=== PATIENT | male | born 1945 | race African-American/Black ===

== ENCOUNTER 2017-03-17 08:00 | Inpatient (IN) | payer MEDICARE, OTHER ==
[~2017-03-17] VITALS: Ht 185.4 cm; Wt 116.1 kg
[2017-03-17] VITALS (12 sets, daily range): BP systolic 124–192; BP diastolic 75–101
[2017-03-17 08:23] LABS: HEMATOCRIT 41.8 % (39.0-53.0); HEMOGLOBIN 14.1 g/dL (13.0-17.5); RED BLOOD COUNT 4.69 x10^6/uL (4.30-5.70); RED CELL DISTRIBUTION WIDTH 14.5 % (11.5-14.5); WHITE BLOOD COUNT 4.3 x10^3/uL (4.0-11.0)
[2017-03-17 08:33] LABS: PROTHROMBIN TIME PATIENT 12.4 SEC (11.7-14.0)
[2017-03-17 08:36] LABS: CALCIUM 9.1 mg/dL (8.5-10.1); CREATININE 1.2 mg/dL (0.7-1.3); POTASSIUM 4.1 mmol/L (3.5-5.1)
[2017-03-17] MEDS ORDERED: CALC1TAB PO (08:40)
[2017-03-17] MEDS ORDERED: TAMS0.4C97 PO (08:47)
[2017-03-17] MEDS ORDERED: METF500T4 PO (08:47)
[2017-03-17] MEDS ORDERED: LISI-334 PO (08:47)
[2017-03-17] MEDS ORDERED: METO25TA4 PO (08:47)
[2017-03-17] MEDS ORDERED: SIMV40TA3 PO (08:47)
[2017-03-17] MEDS ORDERED: ALLO300T PO (08:47)
[2017-03-17] MEDS ORDERED: ASPI81TA44 PO (08:47)
[2017-03-17] MEDS ORDERED: IBUP200T43 PO (08:47)
[2017-03-17] MEDS ORDERED: IOHEXOL 300 MG/ML 100ML VIAL. ONE ×2 (09:48→10:50)
[2017-03-17] MEDS ORDERED: LIDOCAINE 2% 20 ML VIAL. ONE (09:48)
[2017-03-17] MEDS ORDERED: MIDAZOLAM HCL/PF 2 MG/2 ML VIAL. ONE (10:05)
[2017-03-17] MEDS ORDERED: fentaNYL PF VIAL 100 MCG/2 ML VIAL ONE (10:05)
[2017-03-17] MEDS ORDERED: NITROGLYCERIN 200 MCG/2 ML SYRINGE FOR CATH/VASC LAB. ONE ×2 (10:05→13:51)
[2017-03-17] MEDS ORDERED: HEPARIN for IV BOLUS 10,000 UNIT/10 ML VIAL. ONE (10:05)
[2017-03-17] MEDS ORDERED: VERAPAMIL 5 MG/2 ML VIAL. ONE (10:05)
[2017-03-17] MEDS ORDERED: BIVALIRUDIN 250 MG VIAL. IV ONE ×2 (10:22→11:00)
[2017-03-17] MEDS: IV 1/2 NORMAL SALINE 1,000 ML IV SCH ×2 (10:27→20:31)
[2017-03-17] MEDS ORDERED: ASPIRIN 325 MG TABLET ONE (10:48)
[2017-03-17] MEDS ORDERED: CLOPIDOGREL BISULFATE 75 MG TABLET ONE (10:48)
[2017-03-17] MEDS ORDERED: MIDAZOLAM HCL/PF 2 MG/2 ML VIAL. IV ONE (11:00)
[2017-03-17] MEDS ORDERED: LIDOCAINE 2% 20 ML VIAL. IJ ONE (11:00)
[2017-03-17] MEDS ORDERED: NITROGLYCERIN 200 MCG/2 ML SYRINGE FOR CATH/VASC LAB. IART ONE (11:00)
[2017-03-17] MEDS ORDERED: CLOPIDOGREL BISULFATE 75 MG TABLET PO ONE (11:00)
[2017-03-17] MEDS ORDERED: fentaNYL PF VIAL 100 MCG/2 ML VIAL IV ONE (11:00)
[2017-03-17] MEDS ORDERED: IOHEXOL 300 MG/ML 100ML VIAL. IART ONE (11:00)
[2017-03-17] MEDS ORDERED: HEPARIN for IV BOLUS 10,000 UNIT/10 ML VIAL. IART ONE (11:00)
[2017-03-17] MEDS ORDERED: VERAPAMIL 5 MG/2 ML VIAL. IART ONE (11:00)
[2017-03-17] MEDS ORDERED: ASPIRIN 325 MG TABLET PO ONE (11:00)
--- NOTE | 2017-03-17 11:01 | PDOC ---
MODERATE SEDATION ASSESSMENT RISKS/ALTERNATIVES Risks/Alternatives Risks and alternatives of this type of sedation and procedure discussed with: RISK/ALTERNATIVES: Patient H & P ON CHART H & P H & P on chart and reviewed for co-morbid conditions and appropriate labs. H&P ON CHART: Yes STATUS PREG STATUS ASSESSED: N/A MEDS/ALLERGIES REVIEWED Meds/Allergies Reviewed Medications and Allergies including time and route of recently administered narcotics and sedatives. MEDS/ALLERGIES REVIEWED: Yes ASA RATING ASA RATING: II AIRWAY ASSESSMENT Airway Assessment Airway patency, oral function limitations, presence of caps, crowns, dentures, partials, and ability to extend neck assessed. AIRWAY ASSESSMENT: Yes MALLAMPATI SCORE MALLAMPATI SCORE: II PRE-SEDATION ASSESSMENT PRE-SEDATION ASSESSMENT: Yes JASON MEJIA MD Mar 17, 2017 11:01
[2017-03-17] MEDS ORDERED: NITROGLYCERIN SUBLINGUAL 0.4 MG BOTTLE OF 25. SL PRN (11:15)
--- NOTE | 2017-03-17 11:37 | EKG ---
[facility] [address] [place] [address] Test Date: 2017-03-17 Test Time: 11:26:26 Pat Name: YARA JON Department: Room: Gender: M Warp Tension Tester: ARMANI : 1945 Requested By: JASON MEJIA Order Number: [id number] Reading MD: Measurements Intervals [place] Rate: 55 P: 44 [place]: 196 QRS: -32 QRSD: 88 T: 22 QT: 408 QTc: 392 Interpretive Statements SINUS RHYTHM ABNORMAL LEFT AXIS DEVIATION R-S TRANSITION ZONE IN V LEADS DISPLACED TO THE LEFT LOW LIMB LEAD VOLTAGE LEFT ANTERIOR FASCICULAR BLOCK QRS(T) CONTOUR ABNORMALITY CONSIDER ANTEROSEPTAL MYOCARDIAL DAMAGE ABNORMAL ECG RI6.01 No previous ECG available for comparison
--- NOTE | 2017-03-17 11:58 | CARD ---
APPROVED REPORT Procedure(s) performed: 1. Left heart catheterization, selective coronary angiography and left ventr iculography via right transradial approach 2. Successful PCI/drug eluting stent placement to the left anterior descending artery Moderate Sedation: 61 min INDICATION The indication(s) include : unstable angina . PROCEDURE NARRATIVE After explaining the risks, benefits and alternative options, informed consent was obtained from irma ent. She was brought to the cardiac Environmental Safety Specialist and his right wrist was prepped and draped in the usual fashion after confirming a positive modified Elie's test. Arterial access was obtained in the right radial artery and 6 Norwegian sheath was inserted. 6 Norwegian Ezequiel and 6 Norwegian JL 3.5 catheters were us ed to perform selective angiography of the right and left coronary arteries. 6 Norwegian pigtail cathete r was used to perform left ventriculography. The following findings were noted. FINDINGS 1. Hemodynamics: Left ventricular end-diastolic pressure 17 mmHg. No pullback gradient across the a ortic valve. 2. Left ventriculography: Normal left ventricular systolic function with ejection fraction estimate d at 50-55%. No significant mitral regurgitation seen. 3. Coronary angiography: a. The left main coronary artery arose from the left sinus of Valsalva, gave rise to the left anteri or descending and left circumflex arteries and did not show any significant stenosis. b. The left anterior descending artery showed tandem 90% and 60% stenoses involving the midsegment. c. The left circumflex artery did not show any significant stenosis. d. The right coronary artery was a large and dominant vessel arising from the right sinus of Valsalv a that showed 30% mid segment stenosis. INTERVENTION The left main coronary artery was engaged with a 6 Norwegian JL 3.5 guide catheter after initial attempt s to engage this using 6 Norwegian XB 3.5 guide catheter were unsuccessful. The stenoses in the midsegme nt recrossed with a 0.014 inch Swift Shift guidewire, predilated with a 3.0 x 15 mm trek balloon f ollowing which this was successfully treated with a 3.5 x 28 mm Xience Alpine drug-eluting stent. Fol low-up angiography showed resolution of the stenosis with good distal flow. Patient tolerated the pro cedure well. Hemostasis was achieved using TR band. There were no immediate complications. Conclusion 1. Severe single-vessel coronary artery disease 2. Successful PCI/drug eluting stent placement to the left anterior descending artery 3. Normal left ventricle systolic function with ejection fraction estimated at 50-55%. Recommendations 1. Aspirin 325 mg daily 2. Plavix 75 mg daily for preferably one year 3. Cardiovascular risk factor modification
[2017-03-17] MEDS ORDERED: TRAZ50TA15 PO (13:05)
[2017-03-17] MEDS ORDERED: IBUPROFEN 200 MG TABLET. PO PRN (14:45)
[2017-03-17] MEDS: METOPROLOL TART IMMED RELEASE 25 MG TABLET. PO SCH ×2 (15:00→20:24)
[2017-03-17] MEDS ORDERED: ASPIRIN CHEWABLE 81 MG TABLET. PO SCH (15:00)
[2017-03-17] MEDS: ALLOPURINOL 300 MG TABLET. PO SCH (15:00)
[2017-03-17] MEDS: TAMSULOSIN 0.4 MG CAP.ER.24H. PO SCH (15:00)
[2017-03-17] MEDS: LISINOPRIL 20 MG TABLET PO SCH (15:00)
[2017-03-17] MEDS: hydrALAZINE 20 MG/ML VIAL. IVP PRN ×2 (15:15→20:24)
[2017-03-17] MEDS ORDERED: traZODone 50 MG TABLET. PO SCH (21:00)
[2017-03-17] MEDS ORDERED: METOPROLOL TART IMMED RELEASE 25 MG TABLET. PO SCH (21:00)
[2017-03-17] MEDS ORDERED: SIMVASTATIN 20 MG TABLET PO SCH (21:00)
[2017-03-18 03:50] VITALS: BP 134/72
[2017-03-18 07:00] VITALS: BP 132/72
[2017-03-18] MEDS: IV 1/2 NORMAL SALINE 1,000 ML IV SCH (07:01)
[2017-03-18] MEDS ORDERED: CLOPIDOGREL BISULFATE 75 MG TABLET PO SCH (08:00)
[2017-03-18] MEDS ORDERED: ASPIRIN ENTERIC COATED 325 MG TABLET.DR. PO SCH (08:00)
[2017-03-18] MEDS: ALLOPURINOL 300 MG TABLET. PO SCH (08:43)
[2017-03-18] MEDS: TAMSULOSIN 0.4 MG CAP.ER.24H. PO SCH (08:44)
[2017-03-18] MEDS: METOPROLOL TART IMMED RELEASE 25 MG TABLET. PO SCH (08:44)
[2017-03-18] MEDS: LISINOPRIL 20 MG TABLET PO SCH (08:44)
[2017-03-18] MEDS ORDERED: LISINOPRIL 20 MG TABLET PO SCH (09:00)
[2017-03-18 11:00] VITALS: BP 155/83
[2017-03-18] MEDS ORDERED: CLOP75TA PO (11:22)
[2017-03-18] MEDS ORDERED: ASPI325T11 PO (11:22)
--- NOTE | 2017-03-18 11:23 | PDOC3 ---
PENG GALINDO NEGATIVE CLEANER 03/18/17 1123: Discharge Summary Visit Information Date of Admission: Mar 17, 2017 Date of Discharge: Mar 18, 2017 Admitting Diagnosis: Unstable angina Final Diagnosis Unstable angina, CAD, S/P PCI/RICH to LAD Brief Hospital Course Allergies Allergies Coded Allergies Type Severity Reaction Last Updated Verified No Known Drug Allergies 03/17/17 No Vital Signs Vital Signs Date Time Temp Pulse Resp B/P (MAP) Pulse Ox O2 Delivery O2 Flow Rate FiO2 03/18/17 08:44 77 134/72 03/18/17 08:00 Room Air 03/18/17 07:00 97.6 18 95 97.6 03/17/17 11:08 2.0 Lab Results Laboratory Tests Test 03/17/17 08:15 03/17/17 11:51 03/17/17 16:23 03/17/17 20:46 White Blood Count 4.3 x10^3/uL (4.0-11.0) Red Blood Count 4.69 x10^6/uL (4.30-5.70) Hemoglobin 14.1 g/dL (13.0-17.5) Hematocrit 41.8 % (39.0-53.0) Mean Corpuscular Volume 89 fL (79-100) Mean Corpuscular Hemoglobin 30 pg (25-35) Mean Corpuscular Hemoglobin Concent 34 g/dL (31-37) Red Cell Distribution Width 14.5 % (11.5-14.5) Platelet Count 201 x10^3/uL (140-400) Prothrombin Time 12.4 SEC (11.7-14.0) Prothromb Time International Ratio 1.0 (0.8-1.1) Sodium Level 141 mmol/L (136-145) Potassium Level 4.1 mmol/L (3.5-5.1) Chloride Level 104 mmol/L (98-107) Carbon Dioxide Level 31 mmol/L (21-32) Anion Gap 6 (6-14) Blood Urea Nitrogen 16 mg/dL (8-26) Creatinine 1.2 mg/dL (0.7-1.3) Estimated GFR (Cockcroft-Gault) 72.0 Glucose Level 139 mg/dL (70-99) Calcium Level 9.1 mg/dL (8.5-10.1) Glucose (Fingerstick) 122 mg/dL (70-99) 108 mg/dL (70-99) 224 mg/dL (70-99) Test 03/18/17 08:02 03/18/17 10:54 Glucose (Fingerstick) 127 mg/dL (70-99) 171 mg/dL (70-99) Laboratory Tests Test 03/17/17 11:51 03/17/17 16:23 03/17/17 20:46 03/18/17 08:02 Glucose (Fingerstick) 122 mg/dL (70-99) 108 mg/dL (70-99) 224 mg/dL (70-99) 127 mg/dL (70-99) Test 03/18/17 10:54 Glucose (Fingerstick) 171 mg/dL (70-99) Brief Hospital Course Mr. Michelle is a 71 old male admitted for planned LHC for symptoms of unstable angina. Via right wrist approach, LHC performed and PCI/RICH to LAD was accomplished. Pt tolerated procedure well with no complications. No rhythm ectopies overnight, no CP or SOA. VSS. Right wrist arteriotomy site intact, without swelling or redness and neurovascular status intact. Continue with secondary prevention measures and advised to hold metformin use till Monday. DAPT with ASA/plavix and pt is to follow up in office in 4 weeks and encouraged cardiac rehab. Discussed post LHC instructions. Discharge Information Condition at Discharge: Stable Follow Up: Weeks (4) Disposition/Orders: D/C to Home Scheduled Allopurinol (Allopurinol), 1 TAB PO DAILY, (Reported) Lisinopril (Lisinopril), 1 TAB PO DAILY, (Reported) Metformin Hcl (Metformin Hcl), 1,000 MG PO BIDWMEALS, (Reported) Metoprolol Tartrate (Metoprolol Tartrate), 1 TAB PO BID, (Reported) Simvastatin (Simvastatin), 0.5 TAB PO QHS, (Reported) Tamsulosin Hcl (Flomax), 0.8 MG PO DAILY, (Reported) Trazodone Hcl (Trazodone Hcl), 50 MG PO HS, (Reported) Miscellaneous Medications Calcium Carbonate/Vitamin D3 (Caltrate 600 + D Tablet), 1 EACH PO, (Reported) Discontinued Medications Aspirin (Children's Aspirin), 81 MG PO, (Reported) Ibuprofen (Motrin Ib), 400 MG PO Q6H PRN for PAIN, (Reported) Patient Instructions Patient Instructions GENERAL INSTRUCTIONS: 1. Your dressing should be removed prior to leaving the hospital. 2. It is OK to shower the day after your procedure. 3. If you received stents, be sure to carry your stent information card with you in your wallet/purse at all times. 4. Call the office immediately at [phone] if you notice any fever or if there is redness, worsening tenderness/pain, increased bruising, or drainage from the puncture site. 5. Should you have bleeding from the site, lie down immediately & put pressure on the site. The pressure should be hard enough to stop the bleeding. Have the nearest person call 911. DO NOT try to drive to the ER with active bleeding. 6. If you notice a change in color, coolness to touch, or loss of feeling in the affected extremity, come to the emergency room. Please have someone drive you or call 911 if no one is available. DO NOT drive yourself. 7. If you normally take glucophage (metformin), please do not take this medicine for 48 hours following your procedure. 8. DO NOT STOP TAKING YOUR PLAVIX OR ASPIRIN UNLESS IT IS CLEARED BY A ROBOT OPERATOR OF YOUR GAS METER REPAIR SUPERVISOR AT OUR OFFICE. 9. QUIT SMOKING: the [place] [employer], [place] [employer], & [place] [employer] have cessation resources available on their websites 10. Please have someone available to drive you home from the hospital as you may be limited by sedation medications given during the procedure. Radial Artery (Wrist) access: 1. No pushing, pulling, lifting, typing, or anything that requires repetitive use/movement of the affected wrist for 3 days following your procedure. 2. OK to drive the day following your procedure. (This is because of effects of sedating medications.) Call the office at [phone] for any questions or concerns. JASON MEJIA MD 03/18/17 7659: Discharge Summary Brief Hospital Course Brief Hospital Course Patient seen and examined. Agree with SENIOR QUALITY TECHNICIAN's assessment and plan. s/p PCI/stent to LAD, stable and chest pain-free. Continue dual antiplatelet therapy. DC home today and follow-up with our office in 1 month. Discharge Information Scheduled Allopurinol (Allopurinol), 1 TAB PO DAILY, (Reported) Lisinopril (Lisinopril), 1 TAB PO DAILY, (Reported) Metformin Hcl (Metformin Hcl), 1,000 MG PO BIDWMEALS, (Reported) Metoprolol Tartrate (Metoprolol Tartrate), 1 TAB PO BID, (Reported) Simvastatin (Simvastatin), 0.5 TAB PO QHS, (Reported) Tamsulosin Hcl (Flomax), 0.8 MG PO DAILY, (Reported) Trazodone Hcl (Trazodone Hcl), 50 MG PO HS, (Reported) Miscellaneous Medications Calcium Carbonate/Vitamin D3 (Caltrate 600 + D Tablet), 1 EACH PO, (Reported) Discontinued Medications Aspirin (Children's Aspirin), 81 MG PO, (Reported) Ibuprofen (Motrin Ib), 400 MG PO Q6H PRN for PAIN, (Reported) PENG GALINDO APRN Mar 18, 2017 11:23 JASON MEJIA MD Mar 18, 2017 15:59
== END 2017-03-18 13:00 | disposition home or self-care (01) | DRG 247 ==
LOC: CCL 08:00 → 2 SOUTH 10:30
PROVIDERS: ADMIT Internal Medicine Cardiovascular Disease; ATTEND Internal Medicine Cardiovascular Disease
PROC: B2111ZZ Fluoroscopy of Multiple Coronary Arteries using Low Osmolar Contrast (ICD-10-PCS; principal; 2017-03-17)
PROC: 027034Z Dilation of Coronary Artery, One Artery with Drug-eluting Intraluminal Device, Percutaneous Approach (ICD-10-PCS; 2017-03-17)
PROC: B2151ZZ Fluoroscopy of Left Heart using Low Osmolar Contrast (ICD-10-PCS; 2017-03-17)
PROC: 4A023N7 Measurement of Cardiac Sampling and Pressure, Left Heart, Percutaneous Approach (ICD-10-PCS; 2017-03-17)
DX: I25.110 Atherosclerotic heart disease of native coronary artery with unstable angina pectoris (principal); Z98.61 Coronary angioplasty status
CPT/HCPCS: 36415; 80048; 82962; 85027; 85610; 92928; 93005; 93458; 99152; 99153; C1725; C1769; C1887; C1892; J0360; J0583; J1644; J2250; J3010; J3490; Q9967; J2001

== ENCOUNTER → 2018-04-24 | Outpatient (CLI) | payer MEDICARE, OTHER ==
[~2018-04-24] MED LIST: ALLO300T PO; ASPI325T11 PO; ASPI81TA59 PO; CALC1TAB PO; CLOP75TA PO; IBUP200T44 PO; LISI-334 PO; METF500T16 PO; METO25TA4 PO; SIMV40TA3 PO; TAMS0.4C97 PO; TRAZ-85 PO
--- NOTE | 2018-04-24 16:49 | CARD ---
MR#: [id number] Date of Study: 04/24/2018 Ordering Physician: JASON MEJIA, Referring Physician: JASON MEJIA, Tech: Alida Soriano APPROVED REPORT EXAM: Two-dimensional and M-mode echocardiogram with Doppler and color Doppler. Other Information Quality : AverageHR: 71bpm INDICATION CAD RISK FACTORS Hypertension Hyperlipidemia Diabetes 2D DIMENSIONS RVDd3.2 (2.9-3.5cm)Left Atrium(2D)3.2 (1.6-4.0cm) IVSd1.4 (0.7-1.1cm)Aortic Root(2D)2.8 (2.0-3.7cm) LVDd5.8 (3.9-5.9cm)LVOT Diameter2.2 (1.8-2.4cm) PWd1.2 (0.7-1.1cm)LVDs2.9 (2.5-4.0cm) FS (%) 49.1 %SV132.5 ml Aortic Valve AoV Peak Delta.143.8cm/sAoV VTI28.5cm AO Peak GR.8.3mmHgLVOT Peak Delta.88.2cm/s LVOT VTI 18.93cmAO Mean GR.4mmHg URMILA (VMAX)1.20kb9GWZ (VTI)2.63cm2 Mitral Valve MV E Swwwoqzk54.5cm/sMV DECEL QUCM316cf MV A Lgjymdax724.0cm/sMV SCM13ag E/A Ratio0.8MVA (PHT)2.87cm2 TDI E/Lateral E'20.1E/Medial E'13.6 Pulmonary Valve PV Peak Ehwgqtda928.6cm/sPV Peak Grad.5mmHg Tricuspid Valve TR P. Crwmkwrj497jv/sRAP IJJHXWWP7rbNt TR Peak Gr.67dwWxPZBO65lsVv LEFT VENTRICLE The left ventricle is normal size. There is normal left ventricular wall thickness. The left ventricu lar systolic function is normal and the ejection fraction is within normal range. The Ejection Fracti on is 55-60%. There is normal LV segmental wall motion. Transmitral Doppler flow pattern is Grade I-a bnormal relaxation pattern. RIGHT VENTRICLE The right ventricle is normal size. There is normal right ventricular wall thickness. The right ventr icular systolic function is normal. ATRIA The left atrium size is normal. The right atrium size is normal. The interatrial septum is intact wit h no evidence for an atrial septal defect or patent foramen ovale as noted on 2-D or Doppler imaging. AORTIC VALVE The aortic valve is thickened but opens well. Doppler and Color Flow revealed trace aortic regurgitat ion. Calculated aortic valve area is 2.6 cm2 with maximum pressure gradient of 9 mmHg and mean pressu re gradient of 5 mmHg. There is no significant aortic valvular stenosis. MITRAL VALVE The mitral valve is normal in structure and function. There is no mitral valve stenosis. Doppler and Color-flow revealed trace mitral regurgitation. TRICUSPID VALVE The tricuspid valve is normal in structure and function. Doppler and Color Flow revealed trace tricus pid regurgitation. PULMONIC VALVE The pulmonic valve is not well visualized. Doppler and Color Flow revealed trace pulmonic valvular re gurgitation. GREAT VESSELS The aortic root is normal in size. The IVC was not visualized. PERICARDIAL EFFUSION There is no evidence of significant pericardial effusion. Critical Notification Critical Value: No <Conclusion> The left ventricle is normal size. The left ventricular systolic function is normal and the ejection fraction is within normal range. The Ejection Fraction is 55-60%. Calculated aortic valve area is 2.6 cm2 with maximum pressure gradient of 9 mmHg and mean pressure gr adient of 5 mmHg. There is no significant aortic valvular stenosis. Doppler and Color Flow revealed trace aortic regurgitation. Doppler and Color-flow revealed trace mitral regurgitation. Doppler and Color Flow revealed trace tricuspid regurgitation. Signed by : Maximilian Lemon MD Electronically Approved : 04/24/2018 16:48:30
== END | disposition home or self-care (01) ==
LOC: ECHO 11:14
PROVIDERS: ATTEND Internal Medicine Cardiovascular Disease
DX: I25.118 Atherosclerotic heart disease of native coronary artery with other forms of angina pectoris (principal); I10 Essential (primary) hypertension; E78.5 Hyperlipidemia, unspecified; E11.9 Type 2 diabetes mellitus without complications
CPT/HCPCS: 93306

== ENCOUNTER 2018-06-04 06:38 | Outpatient (CLI) | payer MEDICARE, OTHER ==
[2018-06-04] VITALS (15 sets, daily range): BP systolic 167–200; BP diastolic 80–98
[~2018-06-04] VITALS: Ht 182.9 cm; Wt 115.7 kg
[2018-06-04] MEDS ORDERED: CETI10TA16 PO (07:00)
[2018-06-04] MEDS ORDERED: LISI-334 PO (07:00)
[2018-06-04] MEDS ORDERED: METO100T7 PO (07:00)
[2018-06-04] MEDS ORDERED: HEPARIN for IV BOLUS 10,000 UNIT/10 ML VIAL. ONE ×3 (07:11→08:57)
[2018-06-04] MEDS ORDERED: IODIXANOL 320 MG/ML 100 ML VIAL. ONE ×2 (07:11→08:51)
[2018-06-04] MEDS ORDERED: LIDOCAINE 1% Multi-Dose 20 ML VIAL. ONE (07:11)
[2018-06-04] MEDS ORDERED: CART1TAB5 PO (07:13)
[2018-06-04] MEDS ORDERED: IBUP200T44 PO (07:13)
[2018-06-04] MEDS ORDERED: FINA5TAB4 PO (07:13)
[2018-06-04 07:26] LABS: CALCIUM 8.8 mg/dL (8.5-10.1); CREATININE 1.2 mg/dL (0.7-1.3); GFR 71.8; POTASSIUM 3.7 mmol/L (3.5-5.1)
[2018-06-04 07:32] LABS: HEMATOCRIT 38.9 % (39.0-53.0); HEMOGLOBIN 13.5 g/dL (13.0-17.5); RED BLOOD COUNT 4.34 x10^6/uL (4.30-5.70); RED CELL DISTRIBUTION WIDTH 15.5 % (11.5-14.5); WHITE BLOOD COUNT 4.4 x10^3/uL (4.0-11.0)
[2018-06-04] MEDS ORDERED: fentaNYL PF VIAL 100 MCG/2 ML VIAL ONE (07:41)
[2018-06-04] MEDS ORDERED: MIDAZOLAM HCL/PF 2 MG/2 ML VIAL. ONE ×2 (07:41→08:29)
[2018-06-04] MEDS ORDERED: IODIXANOL 320 MG/ML 100 ML VIAL. IART ONE (08:00)
[2018-06-04] MEDS ORDERED: fentaNYL PF VIAL 100 MCG/2 ML VIAL IV ONE (08:00)
[2018-06-04] MEDS ORDERED: MIDAZOLAM HCL/PF 2 MG/2 ML VIAL. IV ONE (08:00)
[2018-06-04] MEDS ORDERED: CONTRAST GIVEN. MC PRN (08:00)
[2018-06-04] MEDS ORDERED: LIDOCAINE 2% 20 ML VIAL. IJ ONE (08:00)
[2018-06-04] MEDS ORDERED: HEPARIN for IV BOLUS 10,000 UNIT/10 ML VIAL. IV ONE (09:15)
[2018-06-04] MEDS ORDERED: NITROGLYCERIN 200 MCG/2 ML SYRINGE FOR CATH/VASC LAB. IART ONE (09:45)
[2018-06-04] MEDS ORDERED: IV 1/2 NORMAL SALINE 1,000 ML IV SCH (10:44)
--- NOTE | 2018-06-04 10:44 | PDOC ---
MODERATE SEDATION ASSESSMENT RISKS/ALTERNATIVES Risks/Alternatives Risks and alternatives of this type of sedation and procedure discussed with: RISK/ALTERNATIVES: Patient H & P ON CHART H & P H & P on chart and reviewed for co-morbid conditions and appropriate labs. H&P ON CHART: Yes STATUS PREG STATUS ASSESSED: N/A MEDS/ALLERGIES REVIEWED Meds/Allergies Reviewed Medications and Allergies including time and route of recently administered narcotics and sedatives. MEDS/ALLERGIES REVIEWED: Yes ASA RATING ASA RATING: II AIRWAY ASSESSMENT Airway Assessment Airway patency, oral function limitations, presence of caps, crowns, dentures, partials, and ability to extend neck assessed. AIRWAY ASSESSMENT: Yes MALLAMPATI SCORE MALLAMPATI SCORE: II PRE-SEDATION ASSESSMENT PRE-SEDATION ASSESSMENT: Yes JASON MEJIA MD Jun 04, 2018 10:44
[2018-06-04] MEDS ORDERED: 0.9 % SODIUM CHLORIDE 10 ML DISP.SYRIN. IV PRN (10:45)
[2018-06-04] MEDS ORDERED: NITROGLYCERIN SUBLINGUAL 0.4 MG BOTTLE OF 25. SL PRN (10:45)
--- NOTE | 2018-06-04 11:00 | CARD ---
MR#: [id number] Date of Study: 06/04/2018 Ordering Physician: JASON NAZARIO, Referring Physician: JASON NAZARIO Tech: Justinabryce Talley RTR APPROVED REPORT Patient StatusOUT-PATIENT Mold Shop Supervisor: Justina Talley RTR Procedure(s) performed: 1. Aortogram with bilateral lower extremity runoff 2. Successful orbital atherectomy/CARPET SEWER to the right superficial femoral artery and successful aspirat ion thrombectomy/CARPET SEWER to right peroneal artery Moderate Sedation time: 93 minutes INDICATION FOR PROCEDURE The indication(s) include : Peripheral artery disease with claudication. PROCEDURE NARRATIVE After explaining the risks, benefits and alternative options, informed consent was obtained from irma ent. Patient was brought to the cardiac Lens Grinding Machine Operator and his left groin was prepped and draped in the usu al fashion. 20 mL of 2% lidocaine was infiltrated into the skin and subcutaneous tissues for local an esthesia. Arterial access was obtained in the left common femoral artery and a 5 Malawian sheath was in serted. 5 Malawian pigtail catheter was used to perform aortogram with bilateral lower extremity runoff . The aortic delio was crossed with a 5 Malawian crossover catheter that was then exchanged to a 4 Ariel vah angled glide catheter. With the tip positioned in the right superficial femoral artery, selective right lower extremity angiography was performed. The following findings were noted. FINDINGS 1. No significant stenosis involving the distal descending aorta 2. No significant stenosis involving bilateral common and external iliac arteries 3. No significant stenosis involving bilateral common femoral arteries 4. 90% heavily calcified stenosis involving the midsegment of the right superficial femoral artery. The left superficial femoral artery showed 30% mid to distal segment stenosis. 5. No significant stenosis involving popliteal arteries bilaterally. 6. The anterior tibial artery takes off in the popliteal fossa bilaterally. The right anterior tibia l artery showed 80% stenosis in the midsegment. The right peroneal artery did not show any significan t stenosis. 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 7. The left anterior tibial artery did not show any significant stenosis in the proximal to midsegme nt. The distal segment was not well-visualized. Left peroneal artery did not show any significant nic nosis. The left posterior tibial artery is not well-visualized but appears to be chronically occluded . INTERVENTION The sheath in the left groin was exchanged to a 6 Malawian 65 cm destination sheath that was advanced o parish the aortic delio and the tip was positioned in the right superficial femoral artery. The stenosi s in the midsegment of the right superficial femoral artery was crossed with a viper guidewire. Multi ple orbital atherectomy passes were then performed with CSI 2.0 Idooblealth orbital atherectomy indira foll owing which this was dilated with a 5.5 x 100 mm Enhanced Surface Dynamics [place] balloon. Follow-up angiography showed resolution of the stenosis but patient was found to have 90% stenosis involving the right peroneal ar carla probably from distal embolization of the plaque. A Pronto aspiration catheter was then advanced over a 0.014 inch command guidewire and multiple aspiration thrombectomy passes were performed withi n the lesion. This was then dilated with a 3.5 x 20 mm trek balloon. Follow-up angiography showed res olution of the lesion with good distal flow. Patient tolerated the procedure well. Hemostasis in the left groin was achieved using Perclose suture closure device. There were no immediate complications. Conclusion Successful orbital atherectomy/CARPET SEWER to the right superficial femoral artery and successful aspiration thrombectomy/CARPET SEWER to the right peroneal artery Recommendations Vascular risk factor modification including regular exercise regimen Signed by : Jason Nazario, Electronically Approved : 06/04/2018 10:58:14
--- NOTE | 2018-06-04 12:16 | NUR ---
pt had not taken some of his meds for several days. b/p elevated today. pt wanted to wait to take meds until he had something to eat. pt took his home meds as follow at this time. metoprolol 50mg, plavix 75mg, EC ASA 325mg, and lisinopril 20mg.
--- NOTE | 2018-06-04 14:48 | NUR ---
Pt VSS. Pt denies any pain or SOB. Left groin site dressing C/D/I, site is soft with no swelling, oozing, or bruising. Pt and given discharge instructions. Pt taken down to [facility] entrance, and driven home by .
== END 2018-06-04 14:36 | disposition home or self-care (01) ==
LOC: CCL 06:38
PROVIDERS: ATTEND Internal Medicine Cardiovascular Disease
DX: I70.213 Atherosclerosis of native arteries of extremities with intermittent claudication, bilateral legs (principal); I10 Essential (primary) hypertension; E11.9 Type 2 diabetes mellitus without complications; E78.5 Hyperlipidemia, unspecified; N40.0 Benign prostatic hyperplasia without lower urinary tract symptoms; Z95.1 Presence of aortocoronary bypass graft; I25.118 Atherosclerotic heart disease of native coronary artery with other forms of angina pectoris; Z79.82 Long term (current) use of aspirin; Z79.899 Other long term (current) drug therapy
CPT/HCPCS: 36415; 37186; 37225; 37228; 75630; 80048; 85027; 85610; 99152; 99153; C1724; C1725; C1757; C1769; C1885; C1892; J1644; J2001; J2250; J3010; J3490; J7030; Q9967; C1771; G0269

== ENCOUNTER → 2019-01-10 | Outpatient (CLI) | payer MEDICARE, OTHER ==
[2018-06-04 14:30] VITALS: BP 167/81
[~2019-01-10] MED LIST changes: +CART1TAB5 PO; +CETI10TA16 PO; +FINA5TAB4 PO; +METO100T7 PO; +TRAZ-118 PO; -TRAZ-85 PO
--- NOTE | 2019-01-10 11:18 | CARD ---
MR#: [id number] Date of Study: 01/10/2019 Ordering Physician: JASON NAZARIO, Referring Physician: JASON NAZARIO Tech: Angi Fernández [facility] APPROVED REPORT EXAM: Two-dimensional and M-mode echocardiogram with Doppler and color Doppler. Other Information Quality : AverageHR: 66bpm Rhythm : NSR INDICATION CAD 2D DIMENSIONS RVDd3.3 (2.9-3.5cm)Left Atrium(2D)4.0 (1.6-4.0cm) IVSd1.3 (0.7-1.1cm)Aortic Root(2D)2.8 (2.0-3.7cm) LVDd5.5 (3.9-5.9cm)LVOT Diameter2.2 (1.8-2.4cm) PWd1.1 (0.7-1.1cm)LVDs3.5 (2.5-4.0cm) FS (%) 36.2 %SV94.5 ml LVEF(%)60.0 (>50%) M-Mode DIMENSIONS Left Atrium(MM)4.14 (2.5-4.0cm)Aortic Root3.32 (2.2-3.7cm) Aortic Valve AoV Peak Delta.159.2cm/sAoV VTI30.5cm AO Peak GR.10.1mmHgLVOT Peak Delta.93.6cm/s AO Mean GR.5mmHgAVA (VMAX)2.25cm2 URMILA (VTI)2.30cm2 Mitral Valve MV E Zebgiwnu70.0cm/sMV DECEL QOTQ249no MV A Wlxbsljl231.6cm/sE/A Ratio0.7 Pulmonary Valve PV Peak Ewdtfhbb156.2cm/s LEFT VENTRICLE The left ventricle is normal size. There is mild concentric left ventricular hypertrophy. The left ve ntricular systolic function is normal. The Ejection Fraction is 60-65%. There is normal LV segmental wall motion. Transmitral Doppler flow pattern is Grade I-abnormal relaxation pattern. RIGHT VENTRICLE The right ventricle is normal size. There is normal right ventricular wall thickness. The right ventr icular systolic function is normal. ATRIA The left atrium is mildly dilated. The right atrium size is normal. The interatrial septum is intact with no evidence for an atrial septal defect or patent foramen ovale as noted on 2-D or Doppler imagi ng. AORTIC VALVE The aortic valve is mildly calcified. The aortic valve is trileaflet. Doppler and Color Flow revealed no significant aortic regurgitation. There is no significant aortic valvular stenosis. There is no a ortic valvular vegetation. MITRAL VALVE The mitral valve is normal in structure and function. There is no evidence of mitral valve prolapse. There is no mitral valve stenosis. Doppler and Color Flow revealed no mitral valve regurgitation note d. TRICUSPID VALVE The tricuspid valve is normal in structure and function. Doppler and Color Flow revealed trace tricus pid regurgitation. There is no tricuspid valve prolapse or vegetation. There is no tricuspid valve st enosis. PULMONIC VALVE The pulmonic valve is not well visualized. GREAT VESSELS The aortic root is normal in size. The ascending aorta is normal in size. The IVC was not visualized. PERICARDIAL EFFUSION There is no evidence of significant pericardial effusion. Critical Notification Critical Value: No <Conclusion> The left ventricular systolic function is normal. The Ejection Fraction is 60-65%. There is normal LV segmental wall motion. Transmitral Doppler flow pattern is Grade I-abnormal relaxation pattern. Trace tricuspid regurgitation. There is no evidence of significant pericardial effusion. Signed by : Jason Nazario, Electronically Approved : 01/10/2019 11:17:40
== END | disposition home or self-care (01) ==
LOC: ECHO 09:55
PROVIDERS: ATTEND Internal Medicine Cardiovascular Disease
DX: I35.8 Other nonrheumatic aortic valve disorders (principal); I25.118 Atherosclerotic heart disease of native coronary artery with other forms of angina pectoris
CPT/HCPCS: 93306

== ENCOUNTER → 2019-07-11 | Outpatient (CLI) | payer MEDICARE, OTHER ==
[2018-06-04 14:30] VITALS: BP 167/81
[~2019-07-11] MED LIST changes: +REGADENOSON 0.4 MG/5 ML DISP.SYRIN. IV ONE; +SIMV40TA18 PO; -SIMV40TA3 PO
--- NOTE | 2019-07-11 15:52 | RAD ---
MR#: [id number] Date of Study: 07/11/2019 Ordering Physician: JASON MEJIA Referring Physician: DORA MAR Tech: RONNIE Hu APPROVED REPORT Test Type: Pharmacological Stress Nurse/Tech: Tamie Castro RN Test Indications: CAD Cardiac History: Hypertension, Diabetes, Stent 02/2017 Medications: See Electronic Medical Record Medical History: See Electronic Medical Record Resting ECG: SR Resting Heart Rate: 60 bpm Resting Blood Pressure: 178/84mmHg Pretest Chest Pain: No chest pain Nurse/Tech Notes S1,S2 and lungs clear to auscultation. Consent: The procedure was explained to the patient in lay terms. Informed consent was witnessed. Faisal eout was entered into [employer]. History and Stress Test performed by RONNIE Hu Pharm. Details Pharmacologic stress testing was performed using 0.4mg per 5ml of regadenoson given intravenously ove r 7-10 seconds. Stress Symptoms Patient stated he felt a little 'weird'. No chest pain or shortness of breath. POST EXERCISE Reason for Termination: Infusion complete Target HR: No Max HR: 89 bpm 71% of Maximum Predicted HR: 124 bpm Max Blood Pressure: 177/81mmHg Blood Pressure response to exercise: Normal blood pressure response during stress. Heart Rate response to exercise: WNL Chest Pain: No. Arrhythmia: Yes. PVC ST Change: No. INTERPRETATION Stress EKG Conclusion: Baseline EKG showed sinus rhythm. No ischemic changes at peak stress. No arr hythmias. Imaging Protocol IMAGE PROTOCOL: Rest Tc-99m/stress Tc-99m 1 day Rest: Stress: Viability: Radiopharm.Tc99m NftsbanahYv53q Sestamibi Qkab93iSr 33mCi Duration 15min. 13min. Img Date 07/11/2019 07/11/2019 Inj-Img Wjqy46iae. 60min. Rest Admin Site:IV - Left AntecubitalAdministrator:RONNIE Hu Stress Admin Site: IV - Left AntecubitalAdministrator: AKI Pinzon, ARRT (R)(N) STRESS DATA End Diast. Vol.121.0mlLVEDV index BSA51.0ml End Syst. Vol.50.0mlLVESV index BSA21.0ml Myocardial Ebkr937.0gEject. Hwxferjo78.0% Stress Scores Regional WT1.00Summed WT15.00 Regional WM0.00Summed WM6.00 Study quality was good. Left Ventricular size was Normal at Rest and Stress. Lung uptake was . Left Ventricular ejection fraction is 59%. The rest and stress images show normal perfusion, normal contraction and thickening. LV Perf. Quant 17 Seg. SSS3.00 17 Seg. SRS8.00 17 Seg. SDS1.00 Stress Defect Extent (% LAD)1.30Rest Defect Extent (% LAD)3.80Rev. Defect Extent (% LAD)1.30 Stress Defect Extent (% LCX) 0.00Rest Defect Extent (% LCX)7.50Rev. Defect Extent (% LCX)0.00 Stress Defect Extent (% RCA)0.00Rest Defect Extent (% RCA)36.70Rev. Defect Extent (% RCA)0.00 Stress Defect Extent (% ROBBY)1.30Rest Defect Extent (% ROBBY)13.30Rev. Defect Extent (% ROBBY)0.90 Conclusion 1. Regadenoson cardioisotope stress test did not show any evidence of ischemia or infarct. 2. Normal left ventricular systolic function with ejection fraction calculated at 59%. 3. Low risk for cardiac events. Signed by : Jason Mejia, Electronically Approved : 07/11/2019 15:51:33
== END | disposition home or self-care (01) ==
LOC: NM 10:24
PROVIDERS: ATTEND Internal Medicine Cardiovascular Disease
DX: I25.118 Atherosclerotic heart disease of native coronary artery with other forms of angina pectoris (principal); I10 Essential (primary) hypertension; E11.9 Type 2 diabetes mellitus without complications; Z95.5 Presence of coronary angioplasty implant and graft
CPT/HCPCS: 78452; 93017; A9500; J2785

== ENCOUNTER → 2020-04-17 | Outpatient (CLI) | payer MEDICARE ==
[2018-06-04 14:30] VITALS: BP 167/81
[~2020-04-17] MED LIST changes: -REGADENOSON 0.4 MG/5 ML DISP.SYRIN. IV ONE
--- NOTE | 2020-04-17 13:56 | CARD ---
MR#: [id number] Date of Study: 04/17/2020 Ordering Physician: JASON NAZARIO, Referring Physician: [place] MAR: Jordon Pizano [facility] APPROVED REPORT EXAM: Two-dimensional and M-mode echocardiogram with Doppler and color Doppler. Other Information Quality : AverageHR: 67bpm Rhythm : NSR INDICATION Hypertension/HCVD CAD 2D DIMENSIONS Left Atrium(2D)4.2 (1.6-4.0cm)IVSd1.5 (0.7-1.1cm) Aortic Root(2D)3.2 (2.0-3.7cm)LVDd4.9 (3.9-5.9cm) PWd1.3 (0.7-1.1cm)LA Iwthrj48 (18-58mL) LVDs4.1 (2.5-4.0cm)FS (%) 17.7 % SV42.3 ml Aortic Valve AoV Peak Delta.158.9cm/Tony Peak GR.10.1mmHg LVOT Peak Delta.95.4cm/s Mitral Valve MV E Tndygqdz44.3cm/sMV DECEL QJCL927pp MV A Noczmjex946.8cm/sE/A Ratio0.8 MV A Tiszpdmx503au Pulmonary Valve PV Peak Hvybmhvp37.1cm/s Tricuspid Valve TR P. Mccejruk105il/sTR Peak Gr.31mmHg Pulmonary Vein S1 Xyjoaprk17.4cm/sD2 Cryeevzj89.0cm/s PVa easearcz273ynwi LEFT VENTRICLE The left ventricle is normal size. There is moderate concentric left ventricular hypertrophy. Left ve ntricle ejection fraction is normal. The Ejection Fraction is 55%. There is normal LV segmental wall motion. Transmitral Doppler flow pattern is Grade I-abnormal relaxation pattern. No left ventricle th rombus noted on this study. There is no ventricular septal defect visualized. RIGHT VENTRICLE The right ventricle is normal size. There is normal right ventricular wall thickness. The right ventr icular systolic function is normal. ATRIA The left atrium is mildly dilated. The right atrium size is normal. The interatrial septum is intact with no evidence for an atrial septal defect or patent foramen ovale as noted on 2-D or Doppler imagi ng. AORTIC VALVE The aortic valve is normal in structure and function. Doppler and Color Flow revealed mild aortic reg urgitation. There is no aortic valvular stenosis. There is no aortic valvular vegetation. MITRAL VALVE The mitral valve is normal in structure and function. There is no evidence of mitral valve prolapse. There is no mitral valve stenosis. There is mild mitral valve regurgitation noted. TRICUSPID VALVE The tricuspid valve is normal in structure and function. Doppler and Color Flow revealed mild tricusp id regurgitation with PAP of 38 mmHg. There is no tricuspid valve prolapse or vegetation. There is no tricuspid valve stenosis. PULMONIC VALVE The pulmonary valve is normal in structure and function. There is no pulmonic valvular regurgitation. There is no pulmonic valvular stenosis. GREAT VESSELS The aortic root is normal in size. The ascending aorta is normal in size. The pulmonary artery is nor mal. The IVC is normal in size and collapses >50% with inspiration. PERICARDIAL EFFUSION There is no pleural effusion. There is no evidence of significant pericardial effusion. Critical Notification Critical Value: No <Conclusion> Left ventricle ejection fraction is normal. The Ejection Fraction is 55%. There is normal LV segmental wall motion. Transmitral Doppler flow pattern is Grade I-abnormal relaxation pattern. Mild aortic regurgitation. Mild mitral valve regurgitation noted. Mild tricuspid regurgitation with PAP of 38 mmHg. There is no evidence of significant pericardial effusion. Signed by : Jason Nazario, Electronically Approved : 04/17/2020 13:55:23
--- NOTE | 2020-04-17 14:45 | RAD ---
MR#: [id number] Date of Study: 04/17/2020 Ordering Physician: JASON MEJIA, Referring Physician: JASON MEJIA, Tech: APPROVED REPORT Patient Location: OUT-PATIENT Indications PAD VELOCITY AND DOPPLER WAVEFORM ANALYSIS RIGHT cm/secWaveformSeverity LEFT cm/secWaveform Severity pCFA 147.0BiphasicpCFA 122.0Biphasic Prof Fem Art. 70.0BiphasicProf Fem Art. 85.0Biphasic Fem Art Prox. 129.0BiphasicFem Art Prox. 106.0Biphasic Fem Art Mid. 184.0BiphasicFem Art Mid. 211.0Biphasic Fem Art Dist. 155.0BiphasicFem Art Dist. 171.0Biphasic Pop Art(Fossa) 57.0BiphasicPop Art(AK) 51.0Biphasic HAIR CUTTER Prox. 58.0BiphasicPTA Prox. 63.0Biphasic HAIR CUTTER Dist. 16.0MonophasicPTA Dist. 0.0Occluded Per Art Dist.44.0MonophasicPer Art Dist.66.0Biphasic CONNOR Prox. 45.0MonophasicATA Prox. 87.0Biphasic DPA 114MonophasicDPA 132Biphasic Findings Grayscale images demonstrated bilateral intimal hyperplasia and moderate diffuse calcification. Spectral waveforms on the right side are mildly elevated in the mid SFA but no focal high-grade steno sis identified bilaterally. There is two-vessel runoff bilaterally with likely occlusions of the posterior tibial arteries bilate rally. Critical Notification Critical Value: No <Conclusion> 1. Bilateral calcified lower extremity arterial vessels without any focal above-knee obstruction. 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 2. 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 Signed by : Noam Moss, Electronically Approved : 04/17/2020 14:44:36
== END ==
LOC: ECHO 10:55
PROVIDERS: ATTEND Internal Medicine Cardiovascular Disease
DX: I08.3 Combined rheumatic disorders of mitral, aortic and tricuspid valves (principal); I11.9 Hypertensive heart disease without heart failure; I70.203 Unspecified atherosclerosis of native arteries of extremities, bilateral legs; I25.10 Atherosclerotic heart disease of native coronary artery without angina pectoris
CPT/HCPCS: 93306; 93925

== ENCOUNTER → 2021-05-03 | Outpatient (CLI) | payer MEDICARE ==
[2018-06-04 14:30] VITALS: BP 167/81
[~2021-05-03] MED LIST changes: -LISI-334 PO; +LISI20TA18 PO; +REGADENOSON 0.4 MG/5 ML DISP.SYRIN. IV ONE
--- NOTE | 2021-05-03 14:04 | CARD ---
MR#: [id number] Date of Study: 05/03/2021 Ordering Physician: JASON MEJIA, Referring Physician: JASON MEJIA, Tech: Alida Soriano, [facility] APPROVED REPORT EXAM: Two-dimensional and M-mode echocardiogram with Doppler and color Doppler. Other Information Quality : AverageHR: 65bpm Technically limited study due to body habitus. INDICATION Cardiac Disease: CAD RISK FACTORS Hypertension Hyperlipidemia Diabetes 2D DIMENSIONS RVDd4.1 (2.9-3.5cm)Left Atrium(2D)3.6 (1.6-4.0cm) IVSd1.1 (0.7-1.1cm)Aortic Root(2D)2.9 (2.0-3.7cm) LVDd5.1 (3.9-5.9cm)LVOT Diameter2.1 (1.8-2.4cm) PWd1.0 (0.7-1.1cm)LVDs2.4 (2.5-4.0cm) FS (%) 52.4 %SV102.4 ml LVEF(%)83.3 (>50%) Aortic Valve AoV Peak Delta.157.7cm/sAoV VTI36.0cm AO Peak GR.10.0mmHgLVOT Peak Delta.75.0cm/s LVOT VTI 18.70cmAO Mean GR.6mmHg URMILA (VMAX)1.09zm6UAC (VTI)1.72cm2 Mitral Valve MV E Aolzoiub99.4cm/sMV DECEL JKMX257js MV A Pzeqnutk998.8cm/sMV E Mean Gr.2mmHg MV PKM28avE/A Ratio0.9 MVA (PHT)3.66cm2 TDI E/Lateral E'11.8E/Medial E'14.1 Pulmonary Valve PV Peak Nnbwyinn56.0cm/sPV Peak Grad.4mmHg Tricuspid Valve TR P. Hjpkwisb057cw/sRAP WRLVASAH0yaHg TR Peak Gr.33ifDcXZYR34jlRb Pulmonary Vein S1 Taxhrqci13.1cm/sD2 Cxbzcjzu21.1cm/s PVa iqocaudg132lyts LEFT VENTRICLE The left ventricle is normal size. There is mild concentric left ventricular hypertrophy. The left ve ntricular systolic function is normal and the ejection fraction is within normal range. The Ejection Fraction is 50-55%. There is grossly normal segmental wall motion. Technically limited images. Transm itral Doppler flow pattern is Grade I-abnormal relaxation pattern. RIGHT VENTRICLE The right ventricle is mildly dilated. There is normal right ventricular wall thickness. The right ve ntricular systolic function is normal. ATRIA The left atrium size is normal. The right atrium size is normal. The interatrial septum is intact wit h no evidence for an atrial septal defect or patent foramen ovale as noted on 2-D or Doppler imaging. AORTIC VALVE The aortic valve is mildly thickened. Doppler and Color Flow revealed trace aortic regurgitation. The re is no significant aortic valvular stenosis. Calculated aortic valve area is 1.33 cm2 with maximum pressure gradient of 13 mmHg and mean pressure gradient of 7 mmHg. MITRAL VALVE The mitral valve is normal in structure and function. There is no evidence of mitral valve prolapse. There is no mitral valve stenosis. Doppler and Color-flow revealed trace mitral regurgitation. TRICUSPID VALVE The tricuspid valve is normal in structure and function. Doppler and Color Flow revealed trace tricus pid regurgitation with an estimated PAP of 29 mmHg. There is no tricuspid valve stenosis. PULMONIC VALVE The pulmonic valve is not well visualized. Doppler and Color Flow revealed trace pulmonic valvular re gurgitation. There is no pulmonic valvular stenosis. GREAT VESSELS The aortic root is normal in size. The ascending aorta is normal in size. The IVC was not visualized. PERICARDIAL EFFUSION There is no evidence of significant pericardial effusion. Critical Notification Critical Value: No <Conclusion> The left ventricular systolic function is normal and the ejection fraction is within normal range. Th e Ejection Fraction is 50-55%. There is grossly normal segmental wall motion. Technically limited images. The right ventricle is mildly dilated. Signed by : Noam Moss, Electronically Approved : 05/03/2021 14:04:08
--- NOTE | 2021-05-03 15:08 | RAD ---
MR#: [id number] Date of Study: 05/03/2021 Ordering Physician: JASON MEJIA, Referring Physician: DORA MAR Tech: AKI Pinzon, ARRT (R) (N) APPROVED REPORT Test Type: Pharmacological Stress Nurse/Tech: Tobi Wills RN Test Indications: CAD Cardiac History: HTN, PTCA in 2017, See EMR. Medications: Xarelto, ASA 81mg QD, See EMR. Medical History: DM, See EMR. Resting ECG: SR Resting Heart Rate: 58 bpm Resting Blood Pressure: 171/75mmHg Pretest Chest Pain: No chest pain Nurse/Tech Notes Lungs CTA, Heart tones regular. Consent: The procedure was explained to the patient in lay terms. Informed consent was witnessed. Faisal eout was entered into [employer]. History and Stress Test performed by RT Leonor (Kale) (N) Pharm. Details Pharmacologic stress testing was performed using 0.4mg per 5ml of regadenoson given intravenously ove r 7-10 seconds. Stress Symptoms No chest pain or symptoms. POST EXERCISE Reason for Termination: Infusion complete Max HR: 89 bpm Max Blood Pressure: 161/65mmHg Blood Pressure response to exercise: Normal blood pressure response during stress. Heart Rate response to exercise: WNL Chest Pain: No. Arrhythmia: No. ST Change: No. INTERPRETATION Stress EKG Conclusion: No evidence of stress induced EKG changes. Imaging Protocol IMAGE PROTOCOL: Rest Tc-99m/stress Tc-99m 1 day Rest: Stress: Viability: Radiopharm.Tc99m QurltsqdbEv73o Sestamibi Dose10.4mCi 31mCi Img Date 05/03/2021 05/03/2021 Inj-Img Joke69whq. 60min. Rest Admin Site:IV - Right AntecubitalAdministrator:RT Leonor (R)(N) Stress Admin Site: IV - Right AntecubitalAdministrator: RT Leonor (R)(N) STRESS DATA End Diast. Vol.141.0mlAv. Heart Rate61.0bpm End Syst. Vol.62.0mlCO Index BSA0.0L/min Myocardial Zcfi006.0gEject. Shjknohf81.0% Stress Rates Pk. Fill Rate1.38EDV/secLVtime Pk. Fill 247.63msec Pk. Empty Rate2.63ESV/secLVtime Pk. Tseec674.53msec 05/31 Pk. Fill0.82EDV/sec Stress Scores Regional WT0.00Summed WT7.00 Regional WM0.00Summed WM0.00 LV Perfusion There is a small FIXED apical defect suggestive of prior infarct versus apical thinning. Wall Motion Normal wall motion. EF 65% LV Perf. Quant 17 Seg. SSS4.00 17 Seg. SRS9.00 17 Seg. SDS0.00 Stress Defect Extent (% LAD)19.40Rest Defect Extent (% LAD)3.80Rev. Defect Extent (% LAD)0.00 Stress Defect Extent (% LCX) 0.00Rest Defect Extent (% LCX)53.80Rev. Defect Extent (% LCX)0.00 Stress Defect Extent (% RCA)0.00Rest Defect Extent (% RCA)3.30Rev. Defect Extent (% RCA)0.00 Stress Defect Extent (% ROBBY)8.50Rest Defect Extent (% ROBBY)14.80Rev. Defect Extent (% ROBBY)0.00 Other Information Quality:Fair Risk Assessment: Low Risk Conclusion 1. No evidence of stress-induced EKG changes 2. Small fixed apical defect suggestive of prior infarct versus apical thinning and fibrosis. No sig nificant ischemia 3. Normal EF greater than 60% 4. Low risk study Signed by : Noam Moss, Electronically Approved : 05/03/2021 15:08:01
== END ==
LOC: NM 07:52
PROVIDERS: ATTEND Internal Medicine Cardiovascular Disease
DX: I35.1 Nonrheumatic aortic (valve) insufficiency (principal); I51.7 Cardiomegaly; I25.118 Atherosclerotic heart disease of native coronary artery with other forms of angina pectoris
CPT/HCPCS: 78452; 93017; 93306; A9500; J2785